=== PATIENT | female | born 1985 | race Caucasian/White ===

== ENCOUNTER 2019-03-09 13:23 | Outpatient (CLI) | payer OTHER ==
[2013-05-08 06:29] VITALS: BP 112/76
[2019-03-09 13:43] LABS: BASOPHILS % 0.6 % (0.0-1.5); NEUTROPHILS # 8.1 # k/uL (1.4-7.7)
[2019-03-09 13:59] LABS: eGFR (Non-African) > 60
== END 2019-03-09 13:25 ==
LOC: LAB 13:23
PROVIDERS: ATTEND Family Medicine
DX: N30.01 Acute cystitis with hematuria (principal)
CPT/HCPCS: 36415; 80053; 85025; 87086

== ENCOUNTER 2019-07-28 15:08 | Outpatient (CLI) | payer OTHER ==
[2013-05-08 06:29] VITALS: BP 112/76
== END 2019-07-28 15:15 ==
LOC: LABRHC 15:08
PROVIDERS: ATTEND Family Medicine
DX: Z11.51 Encounter for screening for human papillomavirus (HPV) (principal); R87.810 Cervical high risk human papillomavirus (HPV) DNA test positive
CPT/HCPCS: 87491; 87591; 87661; 88148; G0143